=== PATIENT | female | born 1990 | race African-American/Black ===

== ENCOUNTER 2017-07-05 19:55 | Emergency (ER) | payer MEDICAID ==
[~2017-07-05] VITALS: Ht 149.9 cm; Wt 59.0 kg
[2017-07-05] MEDS ORDERED: TYLENOL325 MG ORAL (21:28)
[2017-07-05 21:39] VITALS: BP 122/78
--- NOTE | 2017-07-06 00:11 | Emergency Room Report ---
History of Present Illness General Chief Complaint: Lower Extremity Injury Source: Patient Present Illness HPI Patient is a 26-year-old female who presented after increased left lower extremity swelling. The patient hadn't denied recent trauma. She reports having increased clicking to her left ankle. She had noticed increased swelling worse with standing. She reportedly works with standing. She denies contraceptive use or calf Swelling.Patient denies any recent infection or dysuria. She denies any recent dietary changes. Allergies: Coded Allergies: IBUPROFEN (Verified Allergy, Unknown, 07/05/17) Patient History Past Medical History: see triage record Last Menstrual Period: a week ago Now: No Reviewed Nursing Documentation: PMH: Agreed; PSxH: Agreed Review of Systems All Other Systems: negative except mentioned in HPI Physical Exam Vital Signs Date Time Temp Pulse Resp B/P (MAP) Pulse Ox O2 Delivery O2 Flow Rate FiO2 07/05/17 20:02 98.8 88 18 122/78 98 Room Air 98.8 General Appearance: well appearing, no apparent distress, alert, GCS 15 Head: normocephalic, atraumatic ENT: hearing grossly normal, normal voice Neck: full range of motion, supple Respiratory: no respiratory distress, speaking full sentences Cardiovascular #1: normal inspection, regular rate, rhythm, no edema Gastrointestinal: normal inspection Musculoskeletal: no calf tenderness Neurologic: normal inspection, alert, oriented x3, responsive, normal gait Psychiatric: mood/affect normal Skin: no rash Medical Decision Making Diagnostic Impression: Primary Impression: Arthritis ER Course Patient presented for ankle pain. Differential diagnosis included was not limited to sprain, fracture, dislocation, cellulitis, vascular insufficiency. X -ray imaging of the ankle was ordered. The patient is advised to follow up with primary care doctor in next few days for recheck . The patient was advised that she would likely need further workup for arthritis. patient is advised to return if any worsening condition or if any changes in status that are concerning. This report is dictated with [employer] production controller software which may occasionally lead to discrepancies related to use of this software. Labs Test 07/05/17 21:15 Urine HCG, Qualitative Negative (NEGATIVE) Other X-Ray Diagnostic Results Other X-Ray Diagnostic Results : # of Views/Limited Vs Complete: 3 View Indication: Pain EP Interpretation: Yes Interpretation: no dislocation, no fractures Impression: No acute disease Last Vital Signs Date Time Temp Pulse Resp B/P (MAP) Pulse Ox O2 Delivery O2 Flow Rate FiO2 07/05/17 21:39 98.8 18 122/78 98 Room Air 98.8 07/05/17 20:02 88 Status: improved Disposition: HOME, SELF-CARE Condition: Stable Scripts Acetaminophen (Tylenol) 325 Mg Tablet 650 MG ORAL Q6H PRN for Prn Pain/Headache/Temp > 101, #30 TAB 0 Refills Prov: Galo Ray 07/05/17 Patient Instructions: Ankle Pain Galo Ray Jul 06, 2017 00:11
--- NOTE | 2017-07-06 10:31 | Diagnostic Imaging Report ---
Indication: Pain Technique: 3 views of the left ankle Comparison: none Findings: No acute fractures. No dislocations. The joint spaces are preserved. Impression: Negative
== END 2017-07-05 21:39 | disposition home or self-care (01) ==
LOC: EMR 20:20
DX: M19.072 Primary osteoarthritis, left ankle and foot (principal); Z88.6 Allergy status to analgesic agent
CPT/HCPCS: 81025; 99283